=== PATIENT | male | born 1970 | race Caucasian/White ===

== ENCOUNTER 2019-02-21 12:28 | Day surgery (SDC) | payer OTHER ==
[~2019-02-21] VITALS: Ht 185.4 cm; Wt 104.2 kg
[~2019-02-21 12:28] MED LIST: CYCL10 PO; HYDACE5 PO; OXYACE5T PO
[2019-02-21] MEDS ORDERED: OMEPRAZOLE20 MG PO (14:12)
[2019-02-21] MEDS ORDERED: CITA20 PO (14:12)
[2019-02-21] MEDS ORDERED: TEMA15 PO (14:12)
[2019-02-21] MEDS ORDERED: TRAM50 PO (14:13)
--- NOTE | 2019-02-21 18:34 | NUR ---
02/21/191833 Carlee Martinez 1737 PT WRETCHING, GAVE ZOFRAN 4MG ORDERED. SMALL AMOUNT OF SALIVA SUCTIONED ORALLY AND SMALL AMOUNT BRIGHT RED BLOOD FROM NOSTRILS.
== END 2019-02-21 18:44 | disposition home or self-care (01) ==
LOC: ORSCSDS 12:28
PROVIDERS: Internal Medicine Gastroenterology
PROC: 0DB58ZX Excision of Esophagus, Via Natural or Artificial Opening Endoscopic, Diagnostic (ICD-10-PCS; principal; 2019-02-21 14:00)
PROC: 0DBP8ZX Excision of Rectum, Via Natural or Artificial Opening Endoscopic, Diagnostic (ICD-10-PCS; principal; 2019-02-21 14:00)
PROC: 0DB68ZX Excision of Stomach, Via Natural or Artificial Opening Endoscopic, Diagnostic (ICD-10-PCS; principal; 2019-02-21 14:00)
PROC: 0D758ZZ Dilation of Esophagus, Via Natural or Artificial Opening Endoscopic (ICD-10-PCS; principal; 2019-02-21 14:00)
PROC: 0DBE8ZX Excision of Large Intestine, Via Natural or Artificial Opening Endoscopic, Diagnostic (ICD-10-PCS; principal; 2019-02-21 14:00)
DX: K62.5 Hemorrhage of anus and rectum (principal); K52.9 Noninfective gastroenteritis and colitis, unspecified; K64.8 Other hemorrhoids; R13.10 Dysphagia, unspecified; K20.0 Eosinophilic esophagitis; K44.9 Diaphragmatic hernia without obstruction or gangrene; Z79.899 Other long term (current) drug therapy
CPT/HCPCS: 88305; J2405; J2704; J7120

== ENCOUNTER 2023-11-03 11:58 | Observation (INO) | payer OTHER ==
[~2023-11-03] VITALS: Ht 185.4 cm; Wt 113.4 kg
[2023-11-03] VITALS (13 sets, daily range): BP systolic 121–149; BP diastolic 75–99
[~2023-11-03 11:58] MED LIST changes: +CITA20 PO; +FLUT.05NI; +OMEPRAZOLE20 MG PO; +TEMA15 PO; +TRAM50 PO
[2023-11-03 12:46] LABS: Source, Urine Clean Catch
[2023-11-03 12:52] LABS: Appearance, Urine Clear (Clear); Bilirubin, Urine Neg (Neg); Blood, Urine Neg (Neg); Color, Urine Yellow (P-Yellow); Glucose Qualitative, Urine Neg (Neg); Ketones, Urine Neg (Neg); Leukocyte Esterase, Urine Neg (Neg); Nitrite, Urine Neg (Neg); Protein, Urine Neg (Neg); Urobilinogen, Urine 1+ (Normal)
[2023-11-03 12:57] LABS: BASOPHILS ABSOLUTE AUTO 0.06 K/mm3 (0.00-0.23); BASOPHILS PERCENT AUTO 1 % (0-2); EOSINOPHILS ABSOLUTE AUTO 0.43 K/mm3 (0.00-0.68); EOSINOPHILS PERCENT AUTO 4 % (0-6); Hematocrit 44.4 % (37.0-53.0); Hemoglobin 15.2 g/dL (13.5-17.5); IMMATURE GRAN ABSOLUTE AUTO 0.04 K/mm3 (0.00-0.10); IMMATURE GRAN PERCENT AUTO 0 % (0-1); LYMPHOCYTES ABSOLUTE AUTO 2.45 K/mm3 (0.84-5.20); LYMPHOCYTES PERCENT AUTO 24 % (21-46); MONOCYTES PERCENT AUTO 6 % (4-13); Mean Corpuscular HGB 28.8 pg (26.0-34.0); Mean Corpuscular HGB Conc 34.2 g/dL (31.5-36.5); Mean Corpuscular Volume 84 fL (80-100); Mean Platelet Volume 10.2 fL (9.1-12.4); NEUTROPHILS ABSOLUTE AUTO 6.61 K/mm3 (1.96-9.15); NEUTROPHILS PERCENT AUTO 65 % (41-73); Platelet Count 238 K/mm3 (150-400); RDW Coefficient Variation 12.7 % (11.7-14.2); RDW Standard Deviation 38.5 fL (35.1-46.3); Red Blood Cell Count 5.27 M/mm3 (4.30-5.90); White Blood Cell Count 10.19 K/mm3 (4.00-11.30)
[2023-11-03 13:34] LABS: Albumin, Blood 4.1 g/dL (3.4-5.0); Albumin/Globulin Ratio 1.3 (0.8-1.8); Bilirubin, Total 0.3 mg/dL (0.1-1.0); Bun/Creatinine Ratio 11.1 (12.0-20.0); Calcium, Blood 9.1 mg/dL (8.5-10.1); Creatinine, Blood 0.99 mg/dL (0.60-1.20); Globulin, Blood 3.2 g/dL (2.2-4.0); Potassium, Blood 3.4 mmol/L (3.5-5.5); Total Protein, Blood 7.3 g/dL (6.4-8.2)
[2023-11-03] MEDS ORDERED: Ondansetron HCl 2 MG / ML 2ML Vial IV ONE (15:25)
[2023-11-03] MEDS ORDERED: Morphine Sulfate 4 MG/1 ML Injection IV ONE (15:25)
[2023-11-03] MEDS ORDERED: MESA250ER PO (15:54)
[2023-11-03] MEDS ORDERED: OMEP20ER PO (15:54)
[2023-11-03] MEDS ORDERED: TRAZ50 PO (15:54)
[2023-11-03] MEDS ORDERED: Celexa20 MG PO (15:55)
[2023-11-03] MEDS ORDERED: AMLO5 PO (15:55)
[2023-11-03] MEDS ORDERED: EZET10 PO (15:55)
[2023-11-03] MEDS ORDERED: LOSA50 PO (15:56)
[2023-11-03] MEDS ORDERED: CHLO25B PO (15:56)
[2023-11-03] MEDS ORDERED: Bupivacaine 0.5% HCl 5 MG/ML 30MLVIAL ONE (16:02)
[2023-11-03] MEDS ORDERED: Lactated Ringer's 1,000 ML IV SCH ×2 (16:20→17:50)
[2023-11-03] MEDS ORDERED: Piperacillin/Tazobactam Sod 3.375 GM in NS 50 ML IV SCH ×2 (16:20→22:00)
[2023-11-03] MEDS ORDERED: Acetaminophen 325 MG TABLET PO PRN (16:20)
[2023-11-03] MEDS ORDERED: Ondansetron HCl 2 MG / ML 2ML Vial IV PRN (16:20)
[2023-11-03] MEDS ORDERED: FLU VACC QS2023-24(6MOS UP)/PF 60 MCG/0.5 ML SYRINGE IM SCH (16:20)
[2023-11-03] MEDS ORDERED: Morphine Sulfate 10 MG/ML 1MLSYR IV PRN (16:20)
[2023-11-03] MEDS ORDERED: Potassium Chl 20MEQ/Water100ML 100 ML IV STA (16:24)
[2023-11-03] MEDS ORDERED: propofoL 20 ML IV ONE (17:27)
[2023-11-03] MEDS ORDERED: FentaNYL Citrate 50 MCG/ML 2 ML Injection ONE ×3 (17:28→21:00)
[2023-11-03] MEDS ORDERED: Rocuronium Bromide 10 MG/ML 5ML Injection IV ONE (17:28)
[2023-11-03] MEDS ORDERED: Lidocaine HCl 1% 5 ML SYR INJ ONE (17:35)
[2023-11-03] MEDS ORDERED: Midazolam HCl 1MG / ML 2ML Vial IV ONE (17:35)
--- NOTE | 2023-11-03 18:34 | NUR ---
PT IN STEP. VSS. Patient up to Ambulate independently. Gait steady. History, Chart, Medications and Allergies reviewed before start of procedure. Lungs clear T/O to Auscultation. Patient confirms NPO status and agrees with scheduled surgery. Surgical site prepped with 2% Chlorhexidine cloth wipe. Report given to Melodie YORK.
--- NOTE | 2023-11-03 18:38 | NUR ---
ASSUMED CARE AND REPORT FROM KATHERINE DE LA ROSA RN. PT ALERT AND ORIENTED, STOIC, STARTED IV POTASSIUM PER ORDER.
[2023-11-03] MEDS ORDERED: Midazolam HCl 1MG / ML 2ML Vial ONE (19:00)
--- NOTE | 2023-11-03 19:08 | NUR ---
TURNED OFF POTASSIUM DRIP AT [address] NUNN. GAVE 1MG VERSED PER PT. NO CONCERNS PRIOR TO TRANSFER TO OR
[2023-11-03] MEDS ORDERED: Phenylephrine HCl 100 MCG/ML-NS 10MLSYR (1MG/10ML) ONE (19:22)
[2023-11-03] MEDS ORDERED: Dexamethasone Sod Phos 10 MG/ML 1ML VIAL ONE (19:29)
[2023-11-03] MEDS ORDERED: Ondansetron HCl 2 MG / ML 2ML Vial ONE (19:29)
[2023-11-03] MEDS ORDERED: Sugammadex Sodium 200 MG/2ML SDV (100 MG/ML) ONE (19:56)
[2023-11-03] MEDS ORDERED: OxyCODONE HCL 5 MG TAB PO PRN (20:40)
[2023-11-03] MEDS ORDERED: Acetaminophen 500 MG Tab PO PRN (20:40)
[2023-11-03] MEDS ORDERED: TraZODone HCl 50 MG Tab PO SCH (21:00)
[2023-11-03] MEDS ORDERED: Omeprazole 20 MG CapCR PO SCH (21:00)
--- NOTE | 2023-11-03 21:40 | NUR ---
ARRIVAL TO UNIT PT ARRIVED VIA GOURNEY. PT LETHARGIC, RESPONDS TO VERBAL/PHYSCIAL STIMULI. AT BEDSIDE. PT STATES DESIRE TO REST. REPORTS 7/10 PAIN IN ABD "BURNING". MEDICATED PER EMAR. ORIENTED TO ROOM, CALL LIGHT IN REACH, BED IN LOWEST POSITION.
[2023-11-04 01:59] VITALS: BP 133/86
[2023-11-04 02:03] VITALS: BP 133/86
[2023-11-04 04:52] LABS: BASOPHILS ABSOLUTE AUTO 0.01 K/mm3 (0.00-0.23); BASOPHILS PERCENT AUTO 0 % (0-2); EOSINOPHILS ABSOLUTE AUTO 0.01 K/mm3 (0.00-0.68); EOSINOPHILS PERCENT AUTO 0 % (0-6); Hematocrit 41.7 % (37.0-53.0); Hemoglobin 14.1 g/dL (13.5-17.5); IMMATURE GRAN ABSOLUTE AUTO 0.02 K/mm3 (0.00-0.10); IMMATURE GRAN PERCENT AUTO 0 % (0-1); LYMPHOCYTES ABSOLUTE AUTO 0.93 K/mm3 (0.84-5.20); LYMPHOCYTES PERCENT AUTO 11 % (21-46); MONOCYTES ABSOLUTE AUTO 0.21 K/mm3 (0.16-1.47); MONOCYTES PERCENT AUTO 3 % (4-13); Mean Corpuscular HGB 29.2 pg (26.0-34.0); Mean Corpuscular HGB Conc 33.8 g/dL (31.5-36.5); Mean Corpuscular Volume 86 fL (80-100); Mean Platelet Volume 10.5 fL (9.1-12.4); NEUTROPHILS ABSOLUTE AUTO 7.14 K/mm3 (1.96-9.15); NEUTROPHILS PERCENT AUTO 86 % (41-73); Platelet Count 241 K/mm3 (150-400); RDW Coefficient Variation 12.6 % (11.7-14.2); RDW Standard Deviation 39.5 fL (35.1-46.3); Red Blood Cell Count 4.83 M/mm3 (4.30-5.90); White Blood Cell Count 8.32 K/mm3 (4.00-11.30)
[2023-11-04 05:10] LABS: Albumin, Blood 3.5 g/dL (3.4-5.0); Albumin/Globulin Ratio 1.1 (0.8-1.8); Bilirubin, Total 0.7 mg/dL (0.1-1.0); Bun/Creatinine Ratio 12.4 (12.0-20.0); Calcium, Blood 8.8 mg/dL (8.5-10.1); Creatinine, Blood 0.96 mg/dL (0.60-1.20); Globulin, Blood 3.1 g/dL (2.2-4.0); Potassium, Blood 3.6 mmol/L (3.5-5.5); Total Protein, Blood 6.6 g/dL (6.4-8.2)
--- NOTE | 2023-11-04 05:20 | NUR ---
SHIFT SUMMARY POD 1 LAP APPY. NO ACUTE CHANGES OVERNIGHT. VS WNL FOR PT. TOLERATING PO WATER INTAKE. AMBULATING/VOIDING INDEPENDENTLY, NO BM OVERNIGHT. LAP SITE x4 C/D/I. IV ABX INFUSING PER EMAR. PT MEDICATER FOR PAIN PER EMAR, PT REPORTS MODERATELY TOLERABLE, PT COMPLAINS OF "ITCHING" SENSATION AT LAP SITES & "IN STOMACH". ANTICIPATED DISCHARGE LATER TODAY. CALL LIGHT WITHIN REACH, BED IN LOWEST POSITION, WILL REPORT TO DAY RN.
[2023-11-04 07:27] VITALS: BP 122/90
[2023-11-04] MEDS ORDERED: Losartan Potassium 50 MG Tab PO SCH (09:00)
[2023-11-04] MEDS ORDERED: Citalopram Hydrobromide 20 MG Tab PO SCH (09:00)
[2023-11-04] MEDS ORDERED: AmLODIPine Besylate 5 MG Tab PO SCH (09:00)
[2023-11-04 13:27] VITALS: BP 126/86
[2023-11-04] MEDS ORDERED: OXAYDO5 M1 PO (13:29)
[2023-11-04] MEDS ORDERED: VISBIOME 112.51 EACH PO (13:30)
[2023-11-04] MEDS ORDERED: AMOCLA500 PO (13:31)
[2023-11-04] MEDS ORDERED: Senna-Extra17.2 MG PO (13:31)
--- NOTE | 2023-11-04 13:52 | NUR ---
DISCHARGED REVIEWED DC INSTRUCTIONS W/PT AND SPOUSE; VERBALIZED UNDERSTANDING. IVS DC'D. PRESCRIPTIONS FAXED TO [facility] AND HARD PRESCRIPTION FOR OXYCODONE GIVEN TO PT. PT LEFT UNIT IN WC W/POSSESSIONS AND DC PAPERWORK IN HAND, ACCOMPANIED BY SPOUSE TO RIDE WAITING OUTSIDE.
[2023-11-04] MEDS ORDERED: Omeprazole 20 MG CapCR PO SCH (16:30)
== END 2023-11-04 13:49 | disposition home or self-care (01) ==
LOC: ER 11:58 → SURS 11:59 → ER 17:17 → SURS 17:17
PROVIDERS: Student in an Organized Health Care Education/Training Program; Surgery; ADMIT Internal Medicine
PROC: 0DTJ4ZZ Resection of Appendix, Percutaneous Endoscopic Approach (ICD-10-PCS; principal; 2023-11-03 17:15)
DX: K35.30 Acute appendicitis with localized peritonitis, without perforation or gangrene (principal); E87.6 Hypokalemia; K50.90 Crohn's disease, unspecified, without complications; F32.A Depression, unspecified; I10 Essential (primary) hypertension; E78.5 Hyperlipidemia, unspecified; K21.9 Gastro-esophageal reflux disease without esophagitis; Z87.891 Personal history of nicotine dependence; Z88.5 Allergy status to narcotic agent; Z79.899 Other long term (current) drug therapy
CPT/HCPCS: 36415; 74177; 80053; 81003; 83690; 85025; 85651; 96365-59; 96375-59; 96376-59; 99285-25; A9270; J1100; J2250; J2270; J2371; J2405; J2543; J2704; J3010; J3480; J7120; Q9967

== ENCOUNTER 2023-11-19 15:38 | Emergency (ER) | payer OTHER ==
[~2023-11-19] VITALS: Ht 185.4 cm; Wt 113.4 kg
[~2023-11-19 15:38] MED LIST changes: +AMLO5 PO; +AMOCLA500 PO; +CHLO25B PO; +Celexa20 MG PO; +EZET10 PO; +LOSA50 PO; +MESA250ER PO; +OMEP20ER PO; +OXAYDO5 M1 PO; +Senna-Extra17.2 MG PO; +TRAZ50 PO; +VISBIOME 112.51 EACH PO
[2023-11-19] MEDS ORDERED: NS 1,000 ML IV SCH (16:10)
[2023-11-19] MEDS ORDERED: Ondansetron HCl 2 MG / ML 2ML Vial IV ONE (16:10)
[2023-11-19 16:29] LABS: BASOPHILS ABSOLUTE AUTO 0.05 K/mm3 (0.00-0.23); BASOPHILS PERCENT AUTO 1 % (0-2); EOSINOPHILS ABSOLUTE AUTO 0.48 K/mm3 (0.00-0.68); EOSINOPHILS PERCENT AUTO 5 % (0-6); Hematocrit 47.9 % (37.0-53.0); Hemoglobin 16.3 g/dL (13.5-17.5); IMMATURE GRAN ABSOLUTE AUTO 0.03 K/mm3 (0.00-0.10); IMMATURE GRAN PERCENT AUTO 0 % (0-1); LYMPHOCYTES ABSOLUTE AUTO 1.54 K/mm3 (0.84-5.20); LYMPHOCYTES PERCENT AUTO 17 % (21-46); MONOCYTES ABSOLUTE AUTO 0.55 K/mm3 (0.16-1.47); MONOCYTES PERCENT AUTO 6 % (4-13); Mean Corpuscular HGB 28.6 pg (26.0-34.0); Mean Corpuscular Volume 84 fL (80-100); Mean Platelet Volume 10.1 fL (9.1-12.4); NEUTROPHILS ABSOLUTE AUTO 6.23 K/mm3 (1.96-9.15); NEUTROPHILS PERCENT AUTO 70 % (41-73); Platelet Count 244 K/mm3 (150-400); RDW Coefficient Variation 12.6 % (11.7-14.2); RDW Standard Deviation 38.3 fL (35.1-46.3); Red Blood Cell Count 5.69 M/mm3 (4.30-5.90); White Blood Cell Count 8.88 K/mm3 (4.00-11.30)
[2023-11-19 16:48] LABS: Albumin, Blood 4.1 g/dL (3.4-5.0); Albumin/Globulin Ratio 1.1 (0.8-1.8); Bilirubin, Total 0.9 mg/dL (0.1-1.0); Bun/Creatinine Ratio 11.3 (12.0-20.0); Calcium, Blood 9.6 mg/dL (8.5-10.1); Creatinine, Blood 1.06 mg/dL (0.60-1.20); Globulin, Blood 3.7 g/dL (2.2-4.0); Magnesium, Blood 2.1 mg/dL (1.6-2.4); Potassium, Blood 2.8 mmol/L (3.5-5.5); Total Protein, Blood 7.8 g/dL (6.4-8.2)
[2023-11-19] MEDS ORDERED: Potassium Chloride 20 MEQ TabCR PO ONE (18:10)
[2023-11-19] MEDS ORDERED: Potassium Chloride 10 MEQ in NS 100 ML IV ONE (18:10)
[2023-11-19] MEDS ORDERED: Potassium Chl 10MEQ/Water100ML 100 ML IV ONE (18:15)
[2023-11-19] MEDS ORDERED: PredniSONE 20 MG Tab PO ONE (20:05)
[2023-11-19 20:15] VITALS: BP 135/86
[2023-11-19] MEDS ORDERED: OxyCODONE 5 mg/Acetamin 325 mg TABLET PO ONE (20:15)
[2023-11-19] MEDS ORDERED: K-Dur20 MEQ PO (20:18)
[2023-11-19] MEDS ORDERED: ONDA4ODT MM (20:18)
[2023-11-19] MEDS ORDERED: DELTASONE20 MG PO (20:18)
[2023-11-19] MEDS ORDERED: Percocet 5-3251 EACH PO (20:18)
[2023-11-19 21:33] LABS: Campylobacter Sp Not Detected (NOT DETECT); Plesiomonas Shigelloides Not Detected (NOT DETECT)
[2023-11-19 21:34] LABS: Adenovirus F 40/41 Not Detected (NOT DETECT); Astrovirus Not Detected (NOT DETECT); Cryptosporidium Not Detected (NOT DETECT); Cyclospora Cayetanensis Not Detected (NOT DETECT); E. Coli O157 Not Detected (NOT DETECT); Entamoeba Histolytica Not Detected (NOT DETECT); Enteroaggregative E. coli-EAEC Not Detected (NOT DETECT); Enteropathogenic E. coli-EPEC Not Detected (NOT DETECT); Enterotoxigenic E. coli-ETEC Not Detected (NOT DETECT); Giardia Lamblia Not Detected (NOT DETECT); Norovirus GI/GII Not Detected (NOT DETECT); Rotavirus A Not Detected (NOT DETECT); Salmonella Sp Not Detected (NOT DETECT); Sapovirus Not Detected (NOT DETECT); Shiga Toxin-prod E. coli-STEC Not Detected (NOT DETECT); Shigella/Enteroin E. coli-EIEC Not Detected (NOT DETECT); Vibrio Cholerae Not Detected (NOT DETECT); Vibrio Sp Not Detected (NOT DETECT); Yersinia Enterocolitica Not Detected (NOT DETECT)
== END 2023-11-19 20:36 | disposition home or self-care (01) ==
LOC: ER 15:38
PROVIDERS: Physician Assistant
DX: K51.90 Ulcerative colitis, unspecified, without complications (principal); Z87.891 Personal history of nicotine dependence; Z90.49 Acquired absence of other specified parts of digestive tract; Z79.899 Other long term (current) drug therapy; Z88.5 Allergy status to narcotic agent
CPT/HCPCS: 74176; 80053; 83605; 83690; 83735; 84145; 85025; 87324; 87507; 96365; 96375; 99284-25; A9270; J2405; J3480; J7030; J7512